=== PATIENT | female | born 1990 | race American Indian/Alaskan Native ===

== ENCOUNTER 2016-08-12 03:22 | Emergency (ER) | payer SELFPAY ==
[2016-08-12] MEDS ORDERED: KEFLEX PO ONE (06:17)
[2016-08-12] MEDS ORDERED: KEPPRA PO ONE (06:17)
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
[2016-08-12 06:47] VITALS: BP 132/74
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
== END 2016-08-12 09:45 | disposition home or self-care (01) ==
LOC: ED 03:22
DX: S09.90XA Unspecified injury of head, initial encounter (principal); S01.311A Laceration without foreign body of right ear, initial encounter; R51 Headache; H53.8 Other visual disturbances; F17.200 Nicotine dependence, unspecified, uncomplicated; Z88.8 Allergy status to other drugs, medicaments and biological substances; Y04.0XXA Assault by unarmed brawl or fight, initial encounter; Y93.89 Activity, other specified; Y99.8 Other external cause status; Y92.89 Other specified places as the place of occurrence of the external cause
CPT/HCPCS: 70450

== ENCOUNTER 2016-09-24 22:12 | Emergency (ER) | payer SELFPAY ==
[2016-09-24 22:56] VITALS: BP 107/74
[2016-09-24 23:22] LABS: Basophils % (Auto) 0.4 % (0.0-1.8); Eosinophils % (Auto) 3.1 % (0.0-4.3); Hematocrit 32.5 % (30.3-42.9); Hemoglobin 10.8 gm/dl (10.1-14.3); Mean Corpuscular HGB Conc 33 % (30-34); Mean Corpuscular Hemoglobin 28 pg (28-32); Mean Corpuscular Volume 86 fl (79-97); Platelet Count 295 K/mm3 (140-440); Red Cell Distribution Width 13.2 % (13.2-15.2)
[2016-09-24 23:42] LABS: Alanine Aminotransferase 7 units/L (7-56); Albumin 4.5 g/dL (3.9-5); Albumin/Globulin Ratio 1.6 %; Alkaline Phosphatase 96 units/L (35-129); Anion Gap 19 mmol/L; Bilirubin,Total < 0.20 mg/dL (0.1-1.2); Blood Urea Nitrogen 12 mg/dL (7-17); Calcium 9.7 mg/dL (8.4-10.2); Carbon Dioxide 23 mmol/L (22-30); Chloride 99.3 mmol/L (98-107); Glucose 107 mg/dL (65-100); Potassium 3.8 mmol/L (3.6-5.0); Sodium 137 mmol/L (137-145); Total Protein 7.4 g/dL (6.3-8.2)
[2016-09-25 00:10] LABS: Bilirubin,Urine NEG (Negative); Blood,Urine SM (Negative); Ketones,Urine NEG (Negative); Leukocyte Esterase,Urine MOD (Negative); Nitrite,Urine NEG (Negative); Protein,Urine <15 mg/dL mg/dL (Negative); Urobilinogen,Urine < 2.0 mg/dL (<2.0)
--- NOTE | 2016-09-25 01:08 | Ultrasound Report ---
FINAL REPORT EXAM: US OB \T\lt; = 14 WEEKS FETUS HISTORY: suprapubic pain, test COMPARISON: None available. TECHNIQUE: Several real-time grayscale and color Doppler images were obtained. Transabdominal and transvaginal exam. Spectral analysis. FINDINGS: Uterus measures 11 x 5.6 x 6.5 centimeters. The right ovary measures 3.4 x 2.2 x 3.3 centimeters. Left ovary measures 2.9 x 1.8 x 1.5 centimeters. 2.2 centimeter right ovarian cystic structure which may reflect corpus luteum. There is vascular flow to the ovaries. No adnexal masses. Single live IUP. Estimated gestational age 6 weeks 5 days. Estimated delivery date May 16, 2017. heart rate 141 beats per minute. IMPRESSION: Single live IUP. Estimated gestational age 6 weeks 5 days. Estimated delivery date May 16, 2017. 2.2 centimeter right ovarian cystic structure which may reflect corpus luteum.
--- NOTE | 2016-09-25 01:08 | Ultrasound Report ---
FINAL REPORT EXAM: US OB TRANSVAGINAL HISTORY: suprapubic pain, test COMPARISON: None available. TECHNIQUE: Several real-time grayscale and color Doppler images were obtained. Transabdominal and transvaginal exam. Spectral analysis. FINDINGS: Uterus measures 11 x 5.6 x 6.5 centimeters. The right ovary measures 3.4 x 2.2 x 3.3 centimeters. Left ovary measures 2.9 x 1.8 x 1.5 centimeters. 2.2 centimeter right ovarian cystic structure which may reflect corpus luteum. There is vascular flow to the ovaries. No adnexal masses. Single live IUP. Estimated gestational age 6 weeks 5 days. Estimated delivery date May 16, 2017. heart rate 141 beats per minute. IMPRESSION: Single live IUP. Estimated gestational age 6 weeks 5 days. Estimated delivery date May 16, 2017. 2.2 centimeter right ovarian cystic structure which may reflect corpus luteum.
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
== END 2016-09-25 03:28 | disposition home or self-care (01) ==
LOC: ED 22:12
DX: O98.311 Other infections with a predominantly sexual mode of transmission complicating pregnancy, first trimester (principal); O23.41 Unspecified infection of urinary tract in pregnancy, first trimester; N76.0 Acute vaginitis; B96.89 Other specified bacterial agents as the cause of diseases classified elsewhere; A59.01 Trichomonal vulvovaginitis; F17.200 Nicotine dependence, unspecified, uncomplicated; Z3A.01 Less than 8 weeks gestation of pregnancy; Z88.8 Allergy status to other drugs, medicaments and biological substances
CPT/HCPCS: 36415; 76801; 76817; 80053; 81001; 81025; 84702; 85025; 86850; 86900; 86901; 87210; 87591

== ENCOUNTER 2017-04-03 12:00 | Observation (INO) | payer OTHER ==
[2017-04-03 12:26] VITALS: BP 120/79
== END 2017-04-03 15:32 | disposition home or self-care (01) ==
LOC: TRG 12:00 → LD 15:31
PROVIDERS: ADMIT Obstetrics & Gynecology; ATTEND Obstetrics & Gynecology
DX: O26.893 Other specified pregnancy related conditions, third trimester (principal); R10.9 Unspecified abdominal pain; Z3A.35 35 weeks gestation of pregnancy
CPT/HCPCS: G0378

== ENCOUNTER 2017-05-05 12:49 | Outpatient (CLI) | payer OTHER ==
[2017-05-05 17:19] VITALS: BP 105/55
== END 2017-05-05 14:20 | disposition left against medical advice (07) ==
LOC: TRG 12:49
PROVIDERS: ATTEND Obstetrics & Gynecology
DX: O99.333 Smoking (tobacco) complicating pregnancy, third trimester (principal); F17.200 Nicotine dependence, unspecified, uncomplicated; O48.0 Post-term pregnancy; Z3A.40 40 weeks gestation of pregnancy
CPT/HCPCS: 59025

== ENCOUNTER 2017-05-06 16:27 | Outpatient (CLI) | payer OTHER ==
[2017-05-06] MEDS ORDERED: LACTATED RINGERS 1,000 ML ONE (19:12)
--- NOTE | 2017-05-06 20:13 | Ultrasound Report ---
FINAL REPORT PROCEDURE: US OB BPP WO NON-STRESS TECHNIQUE: Sonographic evaluation for breathing, movement, tone, and amniotic fluid volume was performed. CPT 69531 HISTORY: well being COMPARISON: No prior studies are available for comparison. FINDINGS: Amniotic fluid volume: Normal-score 2. At least one vertical pocket > 2 cm or more in vertical axis. breathing: Normal-score 2. movement: Normal-score 2. tone: Normal. Score: 8 of 8. heart rate of 132 beats per minute is detected. The technologist did not identify position. IMPRESSION: Biophysical profile score 8 over 8. Further evaluation was neither requested nor performed.
== END 2017-05-06 19:30 | disposition left against medical advice (07) ==
LOC: TRG 16:27
PROVIDERS: ATTEND Obstetrics & Gynecology
DX: O99.333 Smoking (tobacco) complicating pregnancy, third trimester (principal); F17.200 Nicotine dependence, unspecified, uncomplicated; O47.1 False labor at or after 37 completed weeks of gestation; Z3A.38 38 weeks gestation of pregnancy
CPT/HCPCS: 76819; J7120

== ENCOUNTER 2017-05-25 00:08 | Emergency (ER) | payer OTHER ==
[2017-05-25 06:13] LABS: Hematocrit 31.7 % (30.3-42.9); Hemoglobin 10.8 gm/dl (10.1-14.3); Lymphocytes % (Auto) 25.9 % (13.4-35.0); Mean Corpuscular HGB Conc 34 % (30-34); Mean Corpuscular Hemoglobin 28 pg (28-32); Mean Corpuscular Volume 83 fl (79-97); Platelet Count 489 K/mm3 (140-440); Red Blood Count 3.82 M/mm3 (3.65-5.03); Red Cell Distribution Width 13.7 % (13.2-15.2)
[2017-05-25 06:14] LABS: Basophils # (Auto) 0.1 K/mm3 (0.0-0.1); Basophils % (Auto) 0.9 % (0.0-1.8); Eosinophils % (Auto) 0.5 % (0.0-4.3); Lymphocytes # (Auto) 1.9 K/mm3 (1.2-5.4); Monocytes # (Auto) 0.2 K/mm3 (0.0-0.8)
[2017-05-25 06:37] LABS: Alanine Aminotransferase 7 units/L (7-56); Albumin 4.3 g/dL (3.9-5); BUN/Creatinine Ratio 23; Blood Urea Nitrogen 9 mg/dL (7-17); Calcium 8.8 mg/dL (8.4-10.2); Hemolysis Index 1
--- NOTE | 2017-05-25 06:44 | Emergency Department Report ---
ED General Adult HPI - General Chief complaint: Abdominal Pain Stated complaint: MIGRANE,VOMITING Time Seen by Provider: 05/25/17 06:42 Source: patient Mode of arrival: Ambulatory Limitations: No Limitations - History of Present Illness Initial comments: Mother is here in this emergency department principally because her 18 day old child is on an apnea monitor and it went off 3 times last night. She decided to check in herself. She was drinking alcohol. She complained of some vague headache and abdominal pain. This is since resolved. She states that she vomited once. Her initial blood pressure was 156/100. However that was not treated and rechecked several times and it has been normotensive. She had no hypertension in during gestation. -: hour(s) - Related Data Home Medications Medication Instructions Recorded Confirmed Last Taken Cholecalciferol (Vitamin D3) 1 tab PO QWEEK 05/05/17 05/07/17 04/28/17 21:00 [Vitamin D3] 1 Ferrous Sulfate 325 mg PO TID 05/05/17 05/07/17 05/06/17 Vit,Calc76/Iron/Folic 1 tab PO DAILY 05/05/17 05/07/17 05/06/17 [Pnv 29-1 Tablet] Previous Rx's Medication Instructions Recorded Last Taken Type Ferrous Sulfate [Feosol 325 MG tab] 325 mg PO BID #60 tablet 05/07/17 Unknown Rx HYDROcodone/APAP 5-325 [[place] 1 each PO Q6HR PRN #30 tablet 05/07/17 Unknown Rx 5/325] Ibuprofen [Motrin] 800 mg PO Q8HR PRN #30 tablet 05/07/17 Unknown Rx Vit Calc,Iron,Folic 1 each PO DAILY #30 tablet 05/07/17 Unknown Rx [ Vitamins] HYDROcodone/APAP 5-325 [[place] 1 each PO Q4H PRN tablet 05/09/17 Unknown Rx 5-325 mg TAB] oxyCODONE /ACETAMINOPHEN [Percocet 1 tab PO Q6HR PRN #30 tablet 05/09/17 Unknown Rx 5/325] Allergies Allergy/AdvReac Type Severity Reaction Status Date / Time chlorpromazine HCl Allergy Rash Verified 08/12/16 04:06 [From Thorazine] ED Review of Systems ROS: Stated complaint: MIGRANE,VOMITING Other details as noted in HPI Constitutional: denies: chills, fever Eyes: denies: eye pain, eye discharge, vision change ENT: denies: ear pain, throat pain Respiratory: denies: cough, shortness of breath, wheezing Cardiovascular: denies: chest pain, palpitations Endocrine: no symptoms reported Gastrointestinal: abdominal pain. denies: nausea, diarrhea Genitourinary: denies: urgency, dysuria, discharge Musculoskeletal: denies: back pain, joint swelling, arthralgia Skin: denies: rash, lesions Neurological: headache. denies: weakness, paresthesias Psychiatric: denies: anxiety, depression Hematological/Lymphatic: denies: easy bleeding, easy bruising ED Past Medical Hx - Past Medical History Hx Hypertension: No Hx Diabetes: No Hx Deep Vein Thrombosis: No Hx Renal Disease: No Hx Sickle Cell Disease: No Hx Seizures: Yes (Seizures last ) Hx Asthma: No Hx HIV: No Additional medical history: UTI's - Surgical History Additional Surgical History: c sec - Social History Smoking Status: Current Every Day Smoker Substance Use Type: Alcohol - Medications Home Medications: Home Medications Medication Instructions Recorded Confirmed Last Taken Type Cholecalciferol (Vitamin D3) 1 tab PO QWEEK 05/05/17 05/07/17 04/28/17 21:00 History [Vitamin D3] 1 Ferrous Sulfate 325 mg PO TID 05/05/17 05/07/17 05/06/17 History Vit,Calc76/Iron/Folic 1 tab PO DAILY 05/05/17 05/07/17 05/06/17 History [Pnv 29-1 Tablet] Ferrous Sulfate [Feosol 325 MG tab] 325 mg PO BID #60 tablet 05/07/17 Unknown Rx HYDROcodone/APAP 5-325 [[place] 1 each PO Q6HR PRN #30 tablet 05/07/17 Unknown Rx 5/325] Ibuprofen [Motrin] 800 mg PO Q8HR PRN #30 tablet 05/07/17 Unknown Rx Vit Calc,Iron,Folic 1 each PO DAILY #30 tablet 05/07/17 Unknown Rx [ Vitamins] HYDROcodone/APAP 5-325 [[place] 1 each PO Q4H PRN tablet 05/09/17 Unknown Rx 5-325 mg TAB] oxyCODONE /ACETAMINOPHEN [Percocet 1 tab PO Q6HR PRN #30 tablet 05/09/17 Unknown Rx 5/325] ED Physical Exam - General Limitations: No Limitations General appearance: alert, in no apparent distress - Head Head exam: Present: atraumatic, normocephalic - Eye Eye exam: Present: normal appearance, PERRL, EOMI. Absent: scleral icterus - ENT ENT exam: Present: mucous membranes moist - Neck Neck exam: Present: normal inspection. Absent: tenderness, meningismus - Respiratory Respiratory exam: Present: normal lung sounds bilaterally. Absent: respiratory distress - Cardiovascular Cardiovascular Exam: Present: regular rate, normal rhythm. Absent: systolic murmur, diastolic murmur, rubs, gallop - GI/Abdominal GI/Abdominal exam: Present: soft, normal bowel sounds. Absent: distended, tenderness, guarding, rebound, rigid - Extremities Exam Extremities exam: Present: normal inspection - Back Exam Back exam: Present: normal inspection. Absent: CVA tenderness (R), CVA tenderness (L), muscle spasm, paraspinal tenderness, vertebral tenderness - Neurological Exam Neurological exam: Present: alert, oriented X3, CN II-XII intact. Absent: motor sensory deficit - Psychiatric Psychiatric exam: Present: normal affect, normal mood - Skin Skin exam: Present: warm, dry, intact, normal color. Absent: rash ED Course Vital Signs 05/25/17 05/25/17 05/25/17 00:17 04:35 05:00 Temperature 97.7 F 97.9 F Pulse Rate 97 H 78 Respiratory 20 20 Rate Blood Pressure 156/100 133/75 Blood Pressure 145/74 [Left] O2 Sat by Pulse 96 98 99 Oximetry 05/25/17 06:00 Temperature Pulse Rate Respiratory Rate Blood Pressure 139/88 Blood Pressure [Left] O2 Sat by Pulse Oximetry ED Medical Decision Making - Lab Data Result diagrams: 05/25/17 06:03 05/25/17 06:03 Laboratory Results - last 24 hr 05/25/17 05/25/17 05/25/17 06:03 06:03 06:03 WBC 7.5 RBC 3.82 Hgb 10.8 Hct 31.7 MCV 83 MCH 28 MCHC 34 RDW 13.7 Plt Count 489 H Lymph % (Auto) 25.9 [place] % (Auto) 3.0 Eos % (Auto) 0.5 Baso % (Auto) 0.9 Lymph # 1.9 [place] # 0.2 Eos # 0.0 Baso # 0.1 Seg Neutrophils % 69.7 Seg Neutrophils # 5.2 Sodium 145 Potassium 3.8 Chloride 103.2 Carbon Dioxide 27 Anion Gap 19 BUN 9 Creatinine 0.4 L Estimated GFR > 60 BUN/Creatinine Ratio 23 Glucose 102 H Calcium 8.8 Total Bilirubin 0.20 AST 15 ALT 7 Alkaline Phosphatase 90 Total Protein 7.5 Albumin 4.3 Albumin/Globulin Ratio 1.3 Lipase 10 L Critical care attestation.: If time is entered above; I have spent that time in minutes in the direct care of this critically ill patient, excluding procedure time. ED Disposition Clinical Impression: Polysubstance abuse Headache Qualifiers: Headache type: unspecified Headache chronicity pattern: acute headache Intractability: not intractable Qualified Code(s): R51 - Headache Abdominal pain Qualifiers: Abdominal location: generalized Qualified Code(s): R10.84 - Generalized abdominal pain Disposition: DC- TO HOME OR SELFCARE Is pt being admited?: No Does the pt Need Aspirin: No Condition: Stable Instructions: Abdominal Pain (ED), Acute Headache (ED), Polysubstance Abuse (ED ) Additional Instructions: Return to the emergency department any acute change or problem. Obviously avoid alcohol and substance abuse. Referrals: ZURDO ORNELAS MD [Primary Care Provider] - 24 Hours Time of Disposition: 07:39
[2017-05-25 07:13] LABS: Bilirubin,Urine NEG (Negative); Blood,Urine NEG (Negative); Color,Urine Yellow (Yellow); Mucus,Urine 3+ /HPF
[2017-05-25 07:18] LABS: Amphetamine Screen,Urine PRESUMPTIVE NEGATIVE; Benzodiazepines Screen,Urine PRESUMPTIVE NEGATIVE; Methadone Screen,Urine PRESUMPTIVE NEGATIVE; Opiate Screen,Urine PRESUMPTIVE NEGATIVE
[2017-05-25 07:30] LABS: Cannabinoid Screen,Urine PRESUMPTIVE POSITIVE; Cocaine Screen,Urine PRESUMPTIVE POSITIVE
[2017-05-25 08:49] VITALS: BP 132/55
== END 2017-05-25 08:50 | disposition home or self-care (01) ==
LOC: ED 00:08
DX: F19.10 Other psychoactive substance abuse, uncomplicated (principal); R51 Headache; R10.84 Generalized abdominal pain; F17.200 Nicotine dependence, unspecified, uncomplicated
CPT/HCPCS: 36415; 80053; 80307; 81001; 83690; 85025; 99283; G0480; 80320